=== PATIENT | female | born 1930 | race Caucasian/White ===

== ENCOUNTER 2018-10-27 19:16 | Inpatient (IN) ==
[2018-10-27] MEDS ORDERED: XYLOCAINE-MPF 1% ONE (20:16)
[2018-10-27] MEDS ORDERED: XYLOCAINE 1% INJ ONE (20:17)
[2018-10-27 20:26] LABS: BASO# 0.04 X1000 (0.0-0.2); BASO% 0.4 % (0.0-0.8); HEMATOCRIT 36.7 % (37.0-47.0); HEMOGLOBIN 12.4 g/dL (12.0-16.0); IMM GRAN# 0.02 X1000 (0.0-0.04); IMM GRAN% 0.2 % (0.0-0.5); LYMPH# 1.07 X1000 (1.2-3.4); LYMPH% 10.3 % (20.5-51.1); MCH 31.8 PG (27-31); MCHC 33.8 g/dL (33-37); MCV 94.1 FL (81-99); MONO# 0.76 X1000 (0.11-0.59); MONO% 7.3 % (1.7-9.3); MPV 10.1 FL (7.4-10.4); NEUT% 80.8 % (42.2-75.2); PLT 208 X1000 (130-400); RDW 13.1 % (11.5-14.5); WBC 10.39 X1000 (4.8-10.8)
[2018-10-27 20:40] LABS: CALCIUM 8.7 mg/dL (8.8-10.2); CREATININE 2.1 mg/dL (0.5-0.9); MAGNESIUM 2.1 mg/dL (1.5-2.7); POTASSIUM 4.7 mmol/L (3.5-5.1)
--- NOTE | 2018-10-27 21:12 | Diag Imaging Result Doc PS360 ---
EXAM: CHEST-PORTABLE INDICATION: SYNCOPE TECHNIQUE: One view COMPARISON: 01/21/2018 FINDINGS: There is evidence of prior granulomatous disease, stable. The lungs are grossly clear, otherwise. There is no discrete pleural fluid collection or pneumothorax. The esophagus is distended with gas. This has been seen on multiple previous studies and was shown on a prior modified barium swallow to be due to achalasia. IMPRESSION: 1.Air distended esophagus that has been seen on multiple previous studies related to known achalasia. 2.No evidence of acute pathology by plain radiograph. Electronically signed by Acosta Arita 10/27/2018 9:09 PM
[2018-10-27] MEDS ORDERED: KEFLEX PO ONE (21:43)
[2018-10-27] MEDS ORDERED: DOXYCYCLINE PO ONE (21:45)
--- NOTE | 2018-10-27 22:45 | PROVIDER DOCUMENTATION ---
This chart was entered by Yolanda Tse Scribe, acting as scribe for Lul Melvin MD. HPI-General Adult - General Chief Complaint: Fall Stated Complaint: FALL Time Seen by Provider: 10/27/18 19:49 Source: patient Allergies/Adverse Reactions: Patient Allergies Allergy/AdvReac Type Severity Reaction Status Date / Time codeine Allergy Unknown Verified 09/29/15 09:16 Penicillins Allergy HIVES Verified 09/29/15 09:16 phenytoin sodium * Allergy RASH Verified 09/29/15 09:16 [From Dilantin] phenytoin sodium extended * Allergy RASH Verified 09/29/15 09:16 [From Dilantin] Home Medications: Home Medication List Medication Instructions Recorded Confirmed Last Taken Type Levothyroxine [Synthroid] 25 microgm PO DAILY 04/29/14 09/30/15 09/30/15 07:30 History 25 Pravastatin Sodium 80 mg PO HS 04/29/14 09/30/15 09/29/15 20:00 History 80 Omeprazole 40 mg PO DAILY 02/25/15 09/30/15 09/29/15 09:00 History 40 Calcitriol 0.25 mcg PO DAILY 03/04/15 09/30/15 09/29/15 09:00 History 0.25 Sodium Bicarbonate 325 mg PO BID 03/04/15 09/30/15 09/29/15 20:00 History 325 Dipyridamole/Aspirin S.a. 1 each PO DAILY 09/29/15 09/30/15 09/23/15 History [Aggrenox] 1 Vitamin B Complex 1 each PO DAILY 09/29/15 09/30/15 09/29/15 09:00 History 1 - History of Present Illness -Gen Adult Nature of Presenting Problems: Pt is 87/F presenting to ED after falling during a syncopal episode. Pt sts that she was on the toilet and passed out. She has abrasions/tears to the dorsal aspect of both hands as well as contusion to R side of face/eye. Pt sts that she has had other similar syncopal episodes and was admitted, but never found a root cause for episodes. Pt does have renal failure and is not on dialysis. Location of Pain/Injury: reports: face, upper extremity Pain Radiation: reports: no radiation Severity: reports: moderate Onset/Duration: reports: just prior to arrival Timing: reports: still present Context/Activities at Onset: reports: other (passed out while on toilet) Modifying Factors: improves with: nothing Associated Symptoms: reports: denies symptoms, syncope. denies: nausea, vomiting Similar Symptoms Previously?: No Recently seen or treated by another doctor?: No Review of Systems - Adult - REVIEW OF SYSTEMS - ADULT Constitutional: denies: chills, fever Eyes: reports: no symptoms reported Ears, Nose, Mouth & Throat: reports: no symptoms reported. denies: nose pain Cardiovascular: reports: no symptoms reported. denies: chest pain, edema Respiratory: reports: shortness of breath (Chronic). denies: cough Gastrointestinal: reports: no symptoms reported. denies: abdominal pain, nausea, vomiting Genitourinary: reports: no symptoms reported Musculoskeletal: reports: no symptoms reported. denies: bone pain, back pain, joint swelling Integumentary: reports: other Neurological: reports: syncope. denies: dizziness/vertigo, headache/migraines Psychiatric: reports: no symptoms reported Endocrine: reports: no symptoms reported Hematologic/Lymphatic: reports: no symptoms reported Allergic/Immunologic: reports: no symptoms reported All Other Systems: Reviewed and Negative Past History - Adult - PAST MEDICAL HISTORY-ADULT Review of Records: reports: Old Records Reviewed, Nursing Assessment Review, Medications Reviewed, Social history reviewed & non-contributory. Major Childhood Illnesses: reports: denies history Cardiovascular: reports: HTN Respiratory: reports: denies history Gastrointestinal: reports: denies history Obstetrical/Gynecological: reports: denies history Genitourinary: reports: denies history Musculoskeletal: reports: denies history Neurological: reports: CVA Endocrine/Immune: reports: thyroid disorder Other Conditions: reports: denies history - PRIOR SURGERIES/PROCEDURES Surgical/Procedure History: reports: appendectomy, cholecystectomy, hysterectomy , orthopedic (extremity) (toe surgery) - IMMUNIZATION STATUS Childhood Immunizations: See Nurse Assessment Flu Vaccine: See Nurse Assessment - FAMILY HISTORY Family History: reviewed, not pertinent - SOCIAL HISTORY Smoking: quit greater than 1 year Substance Use: none/never Alcohol Use Frequency: never Living Situation: family Physical Exam-General - PHYSICAL EXAM-ADULT Initial Vital Signs Reviewed: Yes - CONSTITUTIONAL General Appearance: appears well, alert, no apparent distress - EYES Eyes: PERRL/EOMI, pink conjunctivae - HEAD, EARS, NOSE, MOUTH & THROAT HENMT: normocephalic/atraumatic, moist mucous membranes, normal ENT inspection - NECK Neck: non-tender, full range of motion, supple, normal inspection - RESPIRATORY Respiratory: chest non-tender, lungs clear, normal breath sounds - CARDIOVASCULAR Cardiovascular: regular rate, rhythm - GASTROINTESTINAL (ABDOMEN) Abdominal Exam: normal bowel sounds, non tender, soft - LYMPHATIC Lymphatic: no adenopathy - MUSCULOSKELETAL Back Exam: normal inspection, no CVA tenderness, no vertebral tenderness Extremity: normal range of motion, non-tender, normal gait, normal inspection - SKIN Integumentary: normal color, warm/dry, abrasion(s), ecchymosis, other (pt has 8cm jagged avulsion lac that exposes tendons and veins to L dorsal aspect of hand, also has 7 cm U shaped jagged avulsion that exposes veins and tendons to R dorsal aspect of hand. Has some contusion to R eye/cheek area.) - NEUROLOGIC Neurologic: grossly normal - PSYCHIATRIC Psych/Mental Status: normal mood/affect, normal thought content, normal thought process, oriented x 3 Progress - PLAN OF CARE/RESULTS Progress/Plan/Lab Results: Vital Signs - 8 hr 10/27/18 19:26 Temperature 97.6 F Pulse Rate 90 Respiratory Rate 18 Blood Pressure 137/70 O2 Sat by Pulse Oximetry 97 Laboratory Results - last 24 hr 10/27/18 19:49 POC Glucose 134 H Orders Category Date Time Status Cardiac Monitoring DIRECTED Care 10/27/18 19:50 Active Finger Stick Blood Sugar (ED) DIRECTED Care 10/27/18 19:50 Active CHEST-PORTABLE [RAD] Stat Exams 10/27/18 19:51 Ordered BMP [BASIC METABOLIC PANEL] [CHEM] Stat Lab 10/27/18 19:50 Uncollected CBC WITH ELECTRONIC DIFF [HEME] Stat Lab 10/27/18 19:51 Uncollected FREE T4 Stat Lab 10/27/18 19:51 Uncollected MAGNESIUM [CHEM] Stat Lab 10/27/18 19:51 Uncollected TROPONIN T Stat Lab 10/27/18 19:[address] W/POSS RFLX CULT [URINALYSIS] Stat Lab 10/27/18 19:51 Uncollected EKG [EKG] Stat Ther 10/27/18 19:50 Ordered Result Diagrams: 10/27/18 20:17 10/27/18 20:17 - EKG 1 Time of EKG reading by physician:: 20:11 EKG Read and Signed by:: Lul Melvin EKG Interpretation (*Must complete 3 of following elements*): Abnormal (normal sinus rhythm, Possible Left atrial enlargement, Nonspecific ST and T wave abnormality, Abnormal ECG) Rate: 84 Rhythm: sinus [place]: normal QRS: normal AL Interval: normal - XRAY 1 XRAY: Bilateral XRAY Study: Chest (IMPRESSION: 1.Air distended esophagus that has been seen on multiple previous studies related to known achalasia. 2.No evidence of acute pathology by plain radiograph. Electronically signed by Acosta Arita 10/27/2018 9:09 PM [id number]) Impression: Abnormal - CT/MRI 1 MRI Study: Head Impression: Normal (NO ACUTE CHANGES, NO BLEED) - CONSULTS/PCP/HOSPITALIST Notification #1 *Consult/PCP/Hospitalist*: DR BRADSHAW Consult Disposition: Admit Procedures - LACERATION/WOUND REPAIR/FB Right Hand Wound's Depth, Shape: into muscle, flap Wound Explored/Foreign Body: no foreign body found Irrigated with Saline?: Yes Prepped with: Kit Utilized Anesthetic: Lidocaine w/ Epinephrine Wound Debrided: minimal Wound Repaired with: Sutures, Steri-strips Suture Size/Type: 4.0, Nylon Number of Sutures: 4 Layer Closure?: No Sterile Dressing Applied?: Yes Post Procedure Neurovascular Exam: Intact Procedure Comment: approximated w/ steristrips Left Hand Wound's Depth, Shape: into muscle, flap Wound Explored/Foreign Body: clean Prepped with: Kit Utilized Anesthetic: Lidocaine w/ Epinephrine Wound Debrided: minimal Wound Repaired with: Sutures Suture Size/Type: 4.0, Nylon Number of Sutures: 5 Layer Closure?: No Procedure Comment: approximated w/ steri-strips Departure - Departure Date of Disposition Decision: 10/27/18 Time of Disposition Decision: 22:39 DIAGNOSIS: Syncope and collapse, Laceration of hand without complication, excluding fingers, CKD (chronic kidney disease), RODRIGUEZ (dyspnea on exertion) Disposition: ADMITTED INPATIENT 09 Certified Medical Emergency: Emergent Condition: Stable Referrals and Follow-Ups: Charbel Bhardwaj Jr, MD [Primary Care Provider] - - Critical Care Note This patient required my direct & personal management of CC.: No Attestation - Physician/ BOSSMAN Attestation Patient care was provided by Advanced Practice Provider:: No The physician spent face to face time with patient:: Yes Advanced Practice Provider documentation review:: Supervising physician onsite and consulted in the evaluation and care of this patient. The physician did have a face to face encounter with the patient. This chart was documented by the indicated scribe, (Yolanda Tse, Mariah) and accurately reflects the services I performed and decisions made by me, Lul Melvin MD, as attested by the provider's signature.
[2018-10-27 23:15] LABS: BILIRUBIN URINE NEGATIVE (NEGATIVE); BLOOD URINE 2+ (NEGATIVE); CLARITY CLEAR (CLEAR); COLOR YELLOW; GLUCOSE URINE NEGATIVE (NEGATIVE); KETONE URINE NEGATIVE (NEGATIVE); LEUKOCYTES URINE 1+ (NEGATIVE); NITRITE URINE NEGATIVE (NEGATIVE); PROTEIN URINE TRACE mg/dL (NEGATIVE); URINE EPITHELIAL CELLS <10 /HPF (<10); URINE SOURCE CLEAN CATCH; UROBILINOGEN URINE NORMAL
[2018-10-27 23:16] LABS: URINE BACTERIA 1+ /HFP
[2018-10-27] MEDS ORDERED: TYLENOL PO PRN (23:53)
--- NOTE | 2018-10-28 06:01 | EKG Report ---
Test Performed on : 10/27/2018 8:11:03 PM Test Reason : SYNCOPE Blood Pressure : / mmHG Vent. Rate : 084 BPM Atrial Rate : 084 BPM P-R Int : 138 ms QRS Dur : 066 ms QT Int : 356 ms P-R-T Axes : 065 032 065 degrees QTc Int : 420 ms Normal sinus rhythm. Possible Left atrial enlargement Nonspecific ST and T wave abnormality Abnormal ECG When compared with ECG of 21-JAN-2018 13:22, premature ventricular complexes. are no longer present Unconfirmed Result
--- NOTE | 2018-10-28 09:01 | Diag Imaging Result Doc PS360 ---
EXAM: CT HEAD W/O CONTRAST INDICATION: SYNCOPE TECHNIQUE: This exam was performed using automated exposure control, adjustment of mA or kV according to patient size, and/or use of iterative reconstruction technique. COMPARISON: 04/29/2014 FINDINGS: There is no definite acute infarct given the limited sensitivity of CT versus MRI. There is no discrete intracranial mass, mass effect, or intracranial hemorrhage. The surrounding soft tissues and bony structures are essentially unremarkable. IMPRESSION: No evidence of acute intracranial pathology. Electronically signed by Acosta Arita 10/28/2018 8:59 AM
[2018-10-28] MEDS ORDERED: TYLENOL PO PRN (09:05)
[2018-10-28] MEDS ORDERED: ZOFRAN IV PRN (09:05)
[2018-10-28] MEDS ORDERED: NS 50 ML ONE (10:50)
[2018-10-28] MEDS: ROCEPHIN 1 GM in NS 50 ML IV SCH (10:57)
[2018-10-28] MEDS: NORVASC PO SCH (10:57)
[2018-10-28] MEDS: SYNTHROID PO SCH (10:57)
[2018-10-28] MEDS: NS 1,000 ML IV SCH (10:58)
[2018-10-28] MEDS: SODIUM BICARBONATE PO SCH ×2 (15:30→19:58)
--- NOTE | 2018-10-28 16:29 | HISTORY AND PHYSICAL ---
CHIEF COMPLAINT: Frequent falls. HISTORY OF PRESENT ILLNESS: The patient is an 87-year-old female who presented to [facility]'s ER secondary to a fall. She has lacerations on both of her hands. Interestingly, patient had a very similar reaction approximately a month ago. She was with her daughter and at that point she had not eaten lunch. She was heading to the restroom and became lightheaded and fell. This time she was also heading to the restroom. Unclear if she had eaten or not. She notes that she became lightheaded and she fell. She bruised her hands and tore the skin on both of her hands after the fall. She denies any chest pains or palpitations prior to, during, or after the event. Denies any loss of consciousness either time. Denies any fevers or chills. Denies any GI or issues. ALLERGIES: Codeine and penicillin causing hives. Dilantin causing a rash. MEDICATIONS: Synthroid 25, Pravachol 80, omeprazole 40, Aggrenox, vitamin B. REVIEW OF SYSTEMS: As noted above. Patient denies any chest pains or palpitations. Denies any current fevers. Denies lightheadedness, dizziness, polyuria, polydipsia. Denies any other GI or issues. States she remembers getting lightheaded and faint but was unable to stop. PAST MEDICAL HISTORY: Significant for hypertension, history of cerebrovascular accident. She has had an appendectomy, cholecystectomy, hysterectomy. She has had toe surgery. FAMILY HISTORY: Noncontributory. PHYSICAL EXAMINATION: VITAL SIGNS: Temperature 97.6 degrees, pulse 90, respiratory 18, BP 137/70, saturating 97% on room air. GENERAL: Patient is awake. She is pleasant to talk with. She is in no distress. She is alert and oriented. HEENT: Normocephalic. NECK: Supple. CV: Regular rate. CHEST: Clear. ABDOMEN: Soft. NEUROLOGIC: No focal changes. She is very pleasant to talk with. ASSESSMENT: 1. Syncope of undetermined origin. 2. Lacerations bilateral hands secondary to the fall. 3. Chronic renal failure with slight acute worsening. 4. Known achalasia with slightly worsening symptoms of dysphagia. PLAN: We will continue patient in the hospital. Place her on telemetry. Allow her to have a regular diet. Further orders as needed. cc: Joaquin Grier MD
[2018-10-28] MEDS ORDERED: PRAVACHOL PO SCH (21:00)
[2018-10-28] MEDS ORDERED: MIRAPEX PO SCH (21:00)
[2018-10-28] MEDS: AGGRENOX PO SCH (21:16)
[2018-10-28 23:56] VITALS: BP 125/57
[2018-10-29] MEDS: NS 1,000 ML IV SCH (01:42)
[2018-10-29 06:02] LABS: HEMATOCRIT 31.5 % (37.0-47.0); HEMOGLOBIN 10.4 g/dL (12.0-16.0); MCH 31.2 PG (27-31); MCV 94.6 FL (81-99); MPV 10.2 FL (7.4-10.4); RBC 3.33 XMIL (4.2-5.4); RDW 13.2 % (11.5-14.5); WBC 7.77 X1000 (4.8-10.8)
[2018-10-29] MEDS: SYNTHROID PO SCH (06:16)
[2018-10-29 06:21] LABS: ALBUMIN 2.9 g/dL (3.5-5.0); CALCIUM 8.3 mg/dL (8.8-10.2); CREATININE 1.9 mg/dL (0.5-0.9); MAGNESIUM 1.9 mg/dL (1.5-2.7); POTASSIUM 4.3 mmol/L (3.5-5.1); TOTAL BILIRUBIN 0.3 mg/dL (0.20-1.00); TOTAL PROTEIN 5.3 g/dL (6.3-8.3)
[2018-10-29] MEDS ORDERED: HEMOCYTE PLUS CAPSULE PO SCH (09:00)
[2018-10-29] MEDS ORDERED: ROCALTROL PO SCH (09:00)
[2018-10-29] MEDS ORDERED: VICON-C PO SCH (09:00)
[2018-10-29] MEDS: NORVASC PO SCH (09:23)
[2018-10-29] MEDS: ROCEPHIN 1 GM in NS 50 ML IV SCH (09:23)
[2018-10-29] MEDS: SODIUM BICARBONATE PO SCH ×2 (09:23→15:27)
[2018-10-29] MEDS: AGGRENOX PO SCH (09:25)
--- NOTE | 2018-10-29 14:51 | ECHO REPORT ---
ORDER DATE: 10/29/2018 ECHOCARDIOGRAPHIC MEASUREMENTS: 1. Interventricular septum 1.0. 2. Left ventricular posterior wall 1.0. 3. Diastolic diameter 4.2. 4. Left atrium 3.7. 5. Aorta 3.5. SUMMARY OF 2-DIMENSIONAL IMAGIN. Normal left ventricular cavity size. Estimated ejection fraction of 65%. Aortic valve leaflets are trileaflet. Pulmonic valve was normal. Tricuspid valve was normal. Mitral valve was mildly thickened, opening normally. 2. There is no aortic stenosis. There is mild aortic regurgitation. There is mild eccentric mitral regurgitation. 3. Mild tricuspid regurgitation. Peak velocity across the tricuspid valve was 3 m/sec. Pulmonary artery systolic pressure of 46 to 50 mmHg. 4. Normal left ventricular cavity size. Estimated ejection fraction of 65%. There is no pericardial effusion or obvious intracardiac mass or thrombus seen. cc: MD Joaquin Talavera MD
--- NOTE | 2018-10-29 16:18 | DISCHARGE SUMMARY ---
ADMISSION DATE: 10/29/2018 DISCHARGE DATE: 10/29/2018 PRIMARY CARE PHYSICIAN: Dr. Charbel Bhardwaj. ADMISSION DIAGNOSES: 1. Syncope. 2. Laceration to bilateral hands secondary to a fall. 3. Known achalasia with slightly worsening symptoms of dysphagia. DISCHARGE DIAGNOSES: 1. Syncope. 2. Laceration of bilateral hands secondary to fall stable. 3. Known occlusion with slightly worsening symptoms of dysphagia. SUMMARY OF FINDINGS: This is an 87-year-old female, who presented to the ER after she had a fall with lacerations to both of her hands. She was with her daughter and had not eaten lunch, was heading to the restroom, became lightheaded and fell. She bruised her hands and tore the skin on both of her hands after the fall. She was admitted. We are obtaining a echocardiogram. Her kidney function has improved. Her urine culture showed mixed tonio. Her head CT showed no evidence of acute intracranial pathology. Her chest x-ray showed no evidence of acute pathology by plain radiograph. She does have an air distended esophagus that has been seen on multiple previous studies related to known achalasia and so it is now felt that she can safely be discharged home. DISCHARGE MEDICATIONS: Amlodipine 2.5 mg p.o. daily, calcitriol 0.25 mcg p.o. daily, Aggrenox 1 p.o. b.i.d., iron tablet p.o. daily, levothyroxine 25 mcg p.o. daily, Mirapex 0.5 mg p.o. at bedtime, pravastatin 80 mg p.o. at bedtime, sodium bicarbonate 325 mg p.o. t.i.d., vitamin B complex p.o. daily. FOLLOWUP: She has an appointment with her primary care on 10/30/2018 at 3 p.m. We have also arranged for 30 day cardiac event detector for the patient, which will be mailed to the patient in 5 to 7 business days. Once they receive it [facility] with [facility] questions and then they will contact her for followup in the office with the spring salvage worker once she completes the 30 days of wearing the monitor. All discharge instructions have been reviewed with the patient and she verbalizes understanding. TIME SPENT: 35 minutes. Dictated by AMAN Simmons for Chago Palacios MD cc: MD Chago Plascencia MD
--- NOTE | 2018-10-29 20:27 | PROGRESS NOTE ---
DATE: 10/29/2018 EF is 65%. The patient is stable. She has no major issues. She did have significant bleeding from her hands, but that is overall stable. Her workup has been negative. She had an echo done which showed an EF of 65% and no major valvular abnormalities. Plan will be to discharge today and have her follow up with PCP. Her creatinine though is a bit elevated at 1.9. She has had a creatinine though 2.3 so that is pretty much close to baseline for her. Her TSH was a bit elevated, but free T4 was normal. Plan was to discharge today. Continue regular medications. I told her to resume her Aggrenox tomorrow and plan will be outpatient Holter monitor. cc: Chago Palacios MD
== END 2018-10-29 15:50 | disposition home or self-care (01) | DRG 312 ==
LOC: P.ED 19:16 → SUATTDRO 23:12 → INTOOBSV 23:12 → P.MEDSURG 23:12
PROVIDERS: ATTEND Internal Medicine
CPT/HCPCS: 70450; 71010; 71045; 80048; 80053; 81001; 82948; 83735; 84439; 84443; 84484; 85025; 85027; 87088; 93005; 93306; 99285; A9270; J0696; J7030; XXXXX